=== PATIENT | female | born 1950 | race Hispanic/Latino ===

== ENCOUNTER 2017-08-17 20:38 | Emergency (ER) | payer MEDICARE, OTHER ==
[2017-08-17 20:39] VITALS: BMI 34.2
[2017-08-17 20:49] VITALS: BP 194/91; PULSE 102; TEMP 98.6
[2017-08-17] MEDS ORDERED: Albuterol-Ipratrop 3 mg / 0.5 (3 ml) UD INH STA ×2 (21:11→21:12)
[2017-08-17 21:26] VITALS: RESP 21; O2SAT 90
--- NOTE | 2017-08-17 21:45 | ED PDOC ---
HPI: SOB/CHF/COPD Time Seen by Provider: 08/17/17 20:51 Chief Complaint (Nursing): Shortness Of Breath Chief Complaint (Provider): Shortness of breath History Per: Patient History/Exam Limitations: no limitations Additional Complaint(s): Patient is a 67 y/o female with a past medical history of oxygen- dependent COPD presenting to the emergency department for chest tightness, shortness of breath, and a mild cough. [facility] and reports that her portable oxygen tank is depleted. Denies fever or other medical complaints. PCP: Dr. Barbara Sidhu Past Medical History Reviewed: Historical Data, Nursing Documentation, Vital Signs Vital Signs: Last Vital Signs Temp 98.6 F 08/17/17 20:45 Pulse 102 H 08/17/17 20:45 Resp 21 08/17/17 21:25 BP 194/91 H 08/17/17 20:45 Pulse Ox 90 L 08/17/17 22:17 - Medical History PMH: Anxiety, COPD, HTN Denies: Chronic Kidney Disease - Family History Family History: States: Unknown Family Hx - Immunization History Hx Tetanus Toxoid Vaccination: No Hx Influenza Vaccination: No Hx Pneumococcal Vaccination: No - Home Medications Home Medications: Ambulatory Orders Medication Instructions Recorded Albuterol Sulfate [Proair Hfa] 12/30/13 Albuterol [Proventil] 12/30/13 Alprazolam [Xanax] 12/30/13 Arformoterol [Brovana] 12/30/13 Calcium/Vitamin D [Calcarb 600 12/30/13 with Vitamin D 600 mg-400 Iu] Docusate Sodium [Colace] 60 mg PO 12/30/13 Tiotropium [Spiriva] 12/30/13 Zolpidem [Ambien] 12/30/13 Cephalexin [Keflex] 2 d PO BID #28 cap 04/11/14 Sulfamethoxazole/Trimethopri 1 tab PO BID #14 tab 04/11/14 [Bactrim Ds 800 mg-160 mg] oxyCODONE/Acetaminophen [Percocet 1 tab PO QID PRN #14 tab 04/11/14 5/325 mg Tab] predniSONE [predniSONE Tab] 60 mg PO QAM #12 tab 08/17/17 - Allergies Allergies/Adverse Reactions: Allergies Allergy/AdvReac Type Severity Reaction Status Date / Time No Known Allergies Allergy Verified 04/11/14 15:38 Review of Systems ROS Statement: Except As Marked, All Systems Reviewed And Found Negative Constitutional: Negative for: Fever Respiratory: Positive for: Cough, Shortness of Breath, Wheezing Physical Exam - Reviewed Nursing Documentation Reviewed: Yes Vital Signs Reviewed: Yes - Physical Exam Appears: Positive for: Well, Non-toxic, No Acute Distress Head Exam: Positive for: ATRAUMATIC, NORMAL INSPECTION, NORMOCEPHALIC Skin: Positive for: Normal Color, Warm, Dry Eye Exam: Positive for: Normal appearance Neck: Positive for: Normal Cardiovascular/Chest: Positive for: Regular Rate, Rhythm. Negative for: Murmur Respiratory: Positive for: Wheezing (bilateral expiratory wheezing). Negative for: Accessory Muscle Use, Respiratory Distress Gastrointestinal/Abdominal: Positive for: Normal Exam Extremity: Positive for: Normal ROM Neurologic/Psych: Positive for: Alert, Oriented (x3) - ECG O2 Sat by Pulse Oximetry: 90 (RA) Pulse Ox Interpretation: Normal Medical Decision Making Medical Decision Making: Time: 21:11 Initial impression: Patient is a 67 y/o female with mild exacerbation of COPD. Initial plan: Albuterol 3 mL INH Prednisone 30 mg Peak flow pre-post treatment assessment Reevaluation Patient is requesting Duoneb treatment and a portable oxygen tank before returning home. Patient declines any further workup and was informed that there were no available portable oxygen tanks for her to take. Reports that she has additional portable tanks at home. 22:15 Patient is stable for discharge. Instructed patient to follow up with Dr. Sidhu in five or six days. Clinical impression: COPD exacerbation Scribe Attestation: Documented by Mercedez Brenner, acting as a scribe for Calin Swain MD. Provider Scribe Attestation: All medical record entries made by the Scribe were at my direction and personally dictated by me. I have reviewed the chart and agree that the record accurately reflects my personal performance of the history, physical exam, medical decision making, and the department course for this patient. I have also personally directed, reviewed, and agree with the discharge instructions and disposition. Disposition - Clinical Impression Clinical Impression: COPD (chronic obstructive pulmonary disease) - Patient ED Disposition Is Patient to be Admitted: No Counseled Patient/Family Regarding: Diagnosis - Disposition Disposition: Routine/Home Disposition Time: 22:15 Condition: STABLE Prescriptions: predniSONE [predniSONE Tab] 60 mg PO QAM #12 tab Instructions: COPD (Chronic Obstructive Pulmonary Disease) (ED) Forms: [email or web address] ([place]er)
== END 2017-08-17 22:29 | disposition home or self-care (01) ==
LOC: H.ER 20:38
DX: J44.1 Chronic obstructive pulmonary disease with (acute) exacerbation (principal); F41.9 Anxiety disorder, unspecified; I10 Essential (primary) hypertension; Z99.81 Dependence on supplemental oxygen